=== PATIENT | male | born 1955 | race Caucasian/White ===

== ENCOUNTER 2020-01-30 12:09 | Day surgery (SDC) | payer MEDICAID ==
[~2020-01-30] VITALS: Ht 180.3 cm; Wt 111.2 kg
[2020-01-30] VITALS (7 sets, daily range): BP systolic 104–120; BP diastolic 45–87
[2020-01-30] MEDS ORDERED: normal saline 1000ml 1,000 ML IV SCH ×2 (12:40→16:25)
[2020-01-30] MEDS ORDERED: vancomycin/NS 1 GM ADD-VANTAGE 250 ML IV ONE (12:40)
[2020-01-30] MEDS ORDERED: ceFAZolin 2gm in dextrose, iso 50 ML IV ONE ×2 (12:40→14:26)
[2020-01-30 12:42] LABS: BASOPHILS # (AUTO) 0.1 X10'3 (0-0.2); BASOPHILS % (AUTO) 1.1 % (0-1); EOSINOPHILS # (AUTO) 0.2 X10'3 (0-0.9); EOSINOPHILS % (AUTO) 2.1 % (0-6); HEMOGLOBIN 16.8 g/dl (14.0-17.9); LYMPHOCYTES # (AUTO) 2.4 X10'3 (1.1-4.8); LYMPHOCYTES % (AUTO) 26.8 % (21-51); MEAN CORPUSCULAR HEMOGLOBIN 31.3 PG (27.0-31.0); MEAN CORPUSCULAR HGB CONC 33.7 g/dL (33.0-36.5); MONOCYTES # (AUTO) 0.6 X10'3 (0-0.9); MONOCYTES % (AUTO) 6.3 % (2-12); NEUTROPHILS # (AUTO) 5.7 X10'3 (1.8-7.7); NEUTROPHILS % (AUTO) 63.7 % (42-75); PLATELET COUNT 187 X10'3 (140-440); RED BLOOD COUNT 5.38 X10'6 (4.70-6.10); RED CELL DISTRIBUTION WIDTH 13.5 % (11.5-14.5); WHITE BLOOD COUNT 8.9 X10'3 (4.5-11.0)
[2020-01-30 12:52] LABS: ALBUMIN 3.8 G/DL (3.4-5.0); ANION GAP 7 (8-16); BLOOD UREA NITROGEN 17 MG/DL (7-18); CALCIUM 8.9 MG/DL (8.5-10.1); CHLORIDE 103 MMOL/L (99-107); GLUCOSE 148 MG/DL (70-104); MAGNESIUM 1.8 MG/DL (1.5-2.4); POTASSIUM 4.7 MMOL/L (3.5-5.1); SODIUM 136 MMOL/L (135-145); TOTAL CARBON DIOXIDE 26.3 MMOL/L (24-32); eGFR 75 ML/MIN
[2020-01-30] MEDS ORDERED: METO25TA6 PO (12:52)
[2020-01-30] MEDS ORDERED: OMEP-50 PO (12:52)
[2020-01-30] MEDS ORDERED: METF-950 PO (12:52)
[2020-01-30] MEDS ORDERED: ALFU10TA10 PO (12:52)
[2020-01-30] MEDS ORDERED: DIGO125T PO (13:03)
[2020-01-30] MEDS ORDERED: ACAR100T PO (13:03)
[2020-01-30] MEDS ORDERED: LISI10TA4 PO (13:03)
[2020-01-30] MEDS ORDERED: DABI150C PO (13:03)
[2020-01-30] MEDS ORDERED: GLIP5TAB13 PO (13:03)
[2020-01-30] MEDS ORDERED: ROSU10TA2 PO (13:03)
[2020-01-30] MEDS ORDERED: GABA300C PO (13:03)
[2020-01-30] MEDS ORDERED: DISO100C4 PO (13:03)
[2020-01-30] MEDS ORDERED: AMIO200T61 PO (13:03)
[2020-01-30] MEDS ORDERED: vancomycin 1,000mg inj ONE (14:27)
[2020-01-30] MEDS ORDERED: midazolam 2 mg/2 ml injection ONE ×3 (14:27→15:28)
[2020-01-30] MEDS ORDERED: fentaNYL/PF 50MCG/1 ML 2ML syringe ONE ×2 (14:27→15:28)
[2020-01-30] MEDS ORDERED: LIDOcaine 1% W/epiNEPHrine 1:100,000 20ml vial ONE (14:27)
[2020-01-30] MEDS ORDERED: iohexol 350 MG/ML 50ML vial IV ONE (15:02)
--- NOTE | 2020-01-30 16:30 | NUR ---
Educated pt's ex- Rachell via telephone re discharge instructions. S.O. instructed to have pt resume metformin on 02/01/2020 & Pradaxa on 01/31/2020 in the evening per MD orders.
== END 2020-01-30 18:00 | disposition home or self-care (01) ==
LOC: SSTAY O 12:09
PROVIDERS: ATTEND Internal Medicine Cardiovascular Disease
DX: I47.2 Ventricular tachycardia (principal); I42.8 Other cardiomyopathies; I48.20 Chronic atrial fibrillation, unspecified; E03.9 Hypothyroidism, unspecified; I10 Essential (primary) hypertension; M10.9 Gout, unspecified; F10.10 Alcohol abuse, uncomplicated; E78.1 Pure hyperglyceridemia; G89.29 Other chronic pain; F17.210 Nicotine dependence, cigarettes, uncomplicated; Z79.01 Long term (current) use of anticoagulants; Z79.4 Long term (current) use of insulin; Z79.899 Other long term (current) drug therapy; Z98.890 Other specified postprocedural states; Z96.611 Presence of right artificial shoulder joint
CPT/HCPCS: 33249; 36415; 71045; 80048; 82948; 83735; 85025; 85610; 93005; 99152; 99153; C1722; C1777; J2250; J3010; J3370; J7030; Q9967; A4565; A4620; A6449

== ENCOUNTER 2024-02-16 12:24 | Emergency (ER) | payer OTHER, MEDICARE, MEDICAID ==
[~2024-02-16] VITALS: Ht 180.3 cm; Wt 119.7 kg
[~2024-02-16 12:24] MED LIST: ACAR100T PO; ALFU10TA47 PO; AMI200T PO; DABI150C PO; DIGO125T PO; DISO100C4 PO; GABA300C PO; GLIP5TAB23 PO; LISI10TA27 PO; LOP25T PO; METF-1203 PO; OMEP20CA16 PO; ROSU10TA2 PO
[2024-02-16 12:36] VITALS: TEMP 97.8
[2024-02-16 13:21] LABS: BASOPHILS # (AUTO) 0.1 X10'3 (0-0.2); BASOPHILS % (AUTO) 0.7 % (0-1); EOSINOPHILS # (AUTO) 0.1 X10'3 (0-0.9); EOSINOPHILS % (AUTO) 0.7 % (0-6); HEMATOCRIT 48.6 % (42.0-52.0); HEMOGLOBIN 15.9 g/dl (14.0-17.9); LYMPHOCYTES # (AUTO) 0.7 X10'3 (1.1-4.8); LYMPHOCYTES % (AUTO) 5.6 % (21-51); MEAN CORPUSCULAR HEMOGLOBIN 30.7 PG (27.0-31.0); MEAN CORPUSCULAR HGB CONC 32.7 g/dL (33.0-36.5); MEAN CORPUSCULAR VOLUME 94.1 FL (78-98); MEAN PLATELET VOLUME 9.8 FL (7.4-10.4); MONOCYTES # (AUTO) 0.6 X10'3 (0-0.9); MONOCYTES % (AUTO) 5.4 % (2-12); NEUTROPHILS # (AUTO) 10.5 X10'3 (1.8-7.7); NEUTROPHILS % (AUTO) 87.6 % (42-75); PLATELET COUNT 202 X10'3 (140-440); RED BLOOD COUNT 5.16 X10'6 (4.70-6.10); RED CELL DISTRIBUTION WIDTH 14.7 % (11.5-14.5)
[2024-02-16 13:36] LABS: ALBUMIN 3.5 G/DL (3.4-5.0); BLOOD UREA NITROGEN 14 MG/DL (7-18); BUN/CREATININE RATIO 10.7 (10.0-20.0); CALCIUM 8.7 MG/DL (8.5-10.1); CREATININE 1.31 MG/DL (0.60-1.10); GLUCOSE 238 MG/DL (70-104); TOTAL CARBON DIOXIDE 30.9 MMOL/L (24-32); eCRCL 57 ML/MIN; eGFR 54 ML/MIN
[2024-02-16 14:10] LABS: ANION GAP 6 (8-16); CHLORIDE 101 MMOL/L (99-107); POTASSIUM 4.7 MMOL/L (3.5-5.1); SODIUM 138 MMOL/L (135-145)
[2024-02-16] MEDS: normal saline 1000ml 1,000 ML IV STA (15:27)
[2024-02-16 15:32] LABS: BILIRUBIN,URINE NEGATIVE (Neg); CLARITY,URINE CLEAR (Clear); COLOR,URINE STRAW (Yellow); GLUCOSE, URINE >=1000 mg/dl (Neg); KETONES,URINE NEGATIVE (Neg); LEUKOCYTE ESTERASE ,URINE NEGATIVE (Neg); NITRITES, URINE NEGATIVE (Neg); OCCULT BLOOD,URINE NEGATIVE (Neg); PROTEIN,URINE NEGATIVE (Neg); UROBILINOGEN,URINE 0.2 E.U/dL (0.2-1.0)
[2024-02-16 15:36] LABS: UA COLLECTION TYPE CLN CATCH MIDSTREAM
[2024-02-16 15:38] LABS: BACTERIA,URINE FEW /HPF (Neg); RBC,URINE 0-2 /HPF (0-2); SQUAMOUS EPITHELIAL CELL,UR MODERATE /LPF (FEW); WBC,URINE 0-4 /HPF (0-4)
[2024-02-16] MEDS ORDERED: CEPH-585 PO (16:25)
[2024-02-16 16:32] VITALS: BP 108/63; PULSE 63; RESP 16; O2SAT 96
== END 2024-02-16 16:37 | disposition home or self-care (01) ==
LOC: ER 12:25
DX: S99.922A Unspecified injury of left foot, initial encounter (principal); E11.9 Type 2 diabetes mellitus without complications; X58.XXXA Exposure to other specified factors, initial encounter; Y93.89 Activity, other specified; Y92.89 Other specified places as the place of occurrence of the external cause; Y99.8 Other external cause status
CPT/HCPCS: 36415; 80048; 81001; 83605; 84145; 85025; 87040; 99285; A6446